=== PATIENT | female | born 1940 | race Caucasian/White ===

== ENCOUNTER 2016-09-12 18:56 | Emergency (ER) | payer OTHER, MEDICARE ==
[~2016-09-12] VITALS: Ht 160 cm; Wt 58.1 kg
--- NOTE | ~2016-09-12 | EKG ---
[address] [place] [address] ELECTROCARDIOGRAM REPORT Name: CHARLIE VUONG [id number] Admission: 09/12/16 Attend Phys: Discharge: 09/12/16 Date of : 36 Report #: [id number] THIS REPORT FOR: //name// [facility] ED Test Date: 2016-09-12 Test Time: 19:01:26 Pat Name: CHARLIE VUONG Department: Room: Gender: F Photoengraver: VAISHNAVI : 1940 Requested By: Vivian Carvajal Order Number: [id number] MD: Trent Olivo Measurements Intervals [facility] Rate: 63 P: 58 [place]: 194 QRS: 15 QRSD: 94 T: 54 QT: 414 QTc: 424 Interpretive Statements Sinus rhythm Nonspecific ST segment abnormality No previous ECG available for comparison Electronically Signed On 09-13-2016 8:34:04 CDT by Trent Olivo [email or web address] <ELECTRONICALLY SIGNED> By: Trent Olivo MD, [facility] 09/13/16 0834 1901 00 Trent Olivo MD, FACC /EPI
[~2016-09-12 18:56] MED LIST: AMBIEN 5 MG TABL5 M1 PO; ATORVASTATIN CA10 MG PO; CO Q-10100 MG PO; DARVOCET-N 1001 EACH PO; FLEXERIL PO; LISINOPRIL; LISINOPRIL20 MG PO; OMEGA-31000 M1 PO; SIMVASTATIN; ZOFRAN ODT4 MG PO
[2016-09-12] MEDS ORDERED: LISINOPRIL-HCT1 EAC1 PO (19:11)
[2016-09-12 19:28] LABS: HEMATOCRIT 41.7 % (37.0-47.0); HEMOGLOBIN 14.5 gm/dL (12.0-15.0); MCH 32.7 pg (26.0-34.0); MCHC 34.6 g/dL (28.0-37.0); MCV 94.3 fL (80.0-100.0); RBC 4.42 mil/uL (4.20-5.00); RDW 12.2 % (10.5-14.5); WBC 5.7 thou/uL (4.0-11.0)
[2016-09-12 19:39] LABS: ANION GAP 5 mmol/L (7-16); BUN 15 mg/dL (7-18); CALCIUM 9.4 mg/dL (8.5-10.1); CHLORIDE 89 mmol/L (98-107); CO2 32 mmol/L (21-32); CREATININE 1.1 mg/dL (0.6-1.3); GLUCOSE 135 mg/dL (70-99); POTASSIUM 3.5 mmol/L (3.5-5.1); SODIUM 126 mmol/L (136-145)
[2016-09-12 19:47] LABS: ALBUMIN 3.8 g/dL (3.4-5.0); ALKALINE PHOSPHATASE 74 U/L (46-116); MAGNESIUM 1.9 mg/dL (1.8-2.4); SGOT 24 U/L (15-37); SGPT 24 U/L (30-65); TOTAL BILIRUBIN 0.6 mg/dL (<0.1-1.0); TOTAL PROTEIN 6.8 g/dL (6.4-8.2); TROPONIN-I < 0.04 ng/mL (<0.04-0.07)
[2016-09-12] MEDS ORDERED: PROTONIX40 M1 PO (20:03)
== END 2016-09-12 20:54 | disposition home or self-care (01) ==
LOC: ER 18:56
PROVIDERS: Physician Assistant
DX: R07.9 Chest pain, unspecified (principal); I10 Essential (primary) hypertension; E78.00 Pure hypercholesterolemia, unspecified

== ENCOUNTER → 2017-01-04 | Outpatient (CLI) | payer OTHER, MEDICARE ==
[~2017-01-04] MED LIST changes: +LISINOPRIL-HCT1 EAC1 PO; +PROTONIX40 M1 PO
== END ==
LOC: BC 12-28 08:15 → RAD 12-28 15:15
DX: Z12.31 Encounter for screening mammogram for malignant neoplasm of breast (principal)

== ENCOUNTER 2017-01-09 13:57 | Emergency (ER) | payer OTHER, MEDICARE ==
[~2017-01-09] VITALS: Ht 160 cm; Wt 57.1 kg
--- NOTE | ~2017-01-09 | EKG ---
[address] [address] ELECTROCARDIOGRAM REPORT Name: CHARLIE VUONG Room #: DEP [facility]#: [id number] Admission: 01/09/17 Attend Phys: Discharge: 01/09/17 Date of : 36 Report #: [id number] THIS REPORT FOR: //name// [facility] ED Test Date: 2017-01-09 Test Time: 15:03:50 Pat Name: CHARLIE VUONG Department: Room: Gender: F Stogy Maker: [id number] : 1940 Requested By: Alison Pate Order Number: [id number] MD: Trent Olivo Measurements Intervals [place] Rate: 58 P: 70 [place]: 233 QRS: 33 QRSD: 86 T: 55 QT: 426 QTc: 419 Interpretive Statements Sinus rhythm Atrial premature complex Prolonged [place] interval Possible anteroseptal infarct, old Compared to ECG 09/12/2016 19:01:26 Atrial premature complex(es) now present Electronically Signed On 01-10-2017 7:45:08 CDT by Trent Olivo [email or web address] <ELECTRONICALLY SIGNED> By: Trent Olivo MD, [facility] 01/10/17 0745 1503 1503 Trent Olivo MD, [facility] /EPI
[2017-01-09 14:50] LABS: ABSOLUTE NEUTROPHILS 3.5 thou/uL (1.4-8.2); BASOPHILS 0.7 % (0.0-2.0); EOSINOPHILS 1.2 % (0.0-3.0); HEMATOCRIT 40.8 % (37.0-47.0); HEMOGLOBIN 14.3 gm/dL (12.0-15.0); MANUAL DIFF NO; MCH 33.2 pg (26.0-34.0); MCV 94.8 fL (80.0-100.0); MONOCYTES 9.7 % (1.0-8.0); PLATELET COUNT 207 thou/uL (150-400); POLYS 65.4 % (36.0-66.0); RDW 12.3 % (10.5-14.5); WBC 5.3 thou/uL (4.0-11.0)
[2017-01-09 14:58] LABS: ANION GAP 5 mmol/L (7-16); BUN 16 mg/dL (7-18); CALCIUM 9.2 mg/dL (8.5-10.1); CHLORIDE 91 mmol/L (98-107); CO2 30 mmol/L (21-32); GLUCOSE 116 mg/dL (74-106); POTASSIUM 3.9 mmol/L (3.5-5.1); SODIUM 126 mmol/L (136-145)
[2017-01-09 15:06] LABS: APTT 28.5 Seconds (24.5-32.8); PROTIME 10.2 Seconds (9.3-11.4); TROPONIN-I < 0.04 ng/mL (<0.04-0.07)
[2017-01-09 15:49] VITALS: BP 163/81
== END 2017-01-09 17:22 | disposition home or self-care (01) ==
LOC: ER 13:57
PROVIDERS: Emergency Medicine
DX: R20.2 Paresthesia of skin (principal); R07.89 Other chest pain; K21.9 Gastro-esophageal reflux disease without esophagitis; E87.1 Hypo-osmolality and hyponatremia; I10 Essential (primary) hypertension; E78.00 Pure hypercholesterolemia, unspecified; F10.99 Alcohol use, unspecified with unspecified alcohol-induced disorder

== ENCOUNTER 2017-03-02 06:24 | Day surgery (SDC) | payer OTHER, MEDICARE ==
[~2017-03-02] VITALS: Ht 160 cm; Wt 57.6 kg
--- NOTE | ~2017-03-02 | O ---
[facility] [place] [address] OPERATIVE REPORT Name: CHARLIE VUONG Room #: 150-5 [facility]..#: [id number] Admission: 03/02/17 Attend Phys: Valentin Fry MD Discharge: Date of : 36 Report #: [id number] THIS REPORT FOR: //name// CC: BELKIS Fry DATE OF SERVICE: 03/02/2017 SURGEON: Valentin Fry MD CERTIFIED PESTICIDE APPLICATOR: None. PREOPERATIVE DIAGNOSIS: Bilateral upper lid dermatochalasia with superior visual field defect. POSTOPERATIVE DIAGNOSIS: Bilateral upper lid dermatochalasia with superior visual field defect. OPERATION PERFORMED: Bilateral upper lid functional blepharoplasty. ANESTHESIA: Local with IV sedation. COMPLICATIONS: None. 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 Visual field testing demonstrates dense superior visual defects. Retesting with the upper lid elevated shows an improvement in visual field loss of over 30% and in excess of 12 degrees. The current procedures are undertaken in order to improve the patient's visual function. Informed consent was obtained to include but not limited to the loss of vision, bleeding, infection, scarring, failure to improve the problem and need for further surgery. DESCRIPTION OF OPERATION: The patient was taken to the operating room, where 2% Xylocaine with epinephrine mixed with equal parts of 0.75% Marcaine with Wydase was administered transcutaneously to each upper lid. The patient was then prepped and draped in the usual sterile fashion and a skin-marking pen was then utilized to outline an upper lid crease that was symmetrical on each side. Graefe forceps were then used to quantitate the redundant upper lid skin and it was similarly outlined. The incisions were then made with Norma scissors and a skin-muscle flap removed from each side with high-temp cautery. Hemostasis was achieved with the monopolar cautery as it was throughout the case. The [address] [address] OPERATIVE REPORT Name: CHARLIE VUONG Room #: [address] [place] [address] M.R.#: [id number] Admission: 03/02/17 Attend Phys: Valentin Fry MD Discharge: Date of : 36 Report #: [id number] orbital septum was then identified and the central and medial fat pads were inspected. The redundant soft tissue was then sculpted with the monopolar cautery. The upper lid crease was then reformed with tightening of the pretarsal orbicularis muscle. The upper lid crease was then further reformed with multiple interrupted 6-0 chromic sutures. The skin was then closed with a running 6-0 plain gut suture. The wound was then cleaned and dressed with ophthalmic antibiotic ointment and a nonstick dressing. The patient was transported to the recovery area, where cold compresses were applied, having tolerated the procedure well with no anesthetic or operative complications being noted. By: 0848 0855 Valentin Fry MD /nt
[~2017-03-02 06:24] MED LIST changes: +MELATONIN 10 M1 EACH PO
[2017-03-02 08:00] VITALS: BP 164/61
== END 2017-03-02 09:30 | disposition home or self-care (01) ==
LOC: OR 06:24 → TBA 06:24 → OR 09:30
DX: H02.834 Dermatochalasis of left upper eyelid (principal); H02.831 Dermatochalasis of right upper eyelid; H53.462 Homonymous bilateral field defects, left side; H53.461 Homonymous bilateral field defects, right side; I10 Essential (primary) hypertension; E78.00 Pure hypercholesterolemia, unspecified; K21.9 Gastro-esophageal reflux disease without esophagitis; Z87.891 Personal history of nicotine dependence; Z85.828 Personal history of other malignant neoplasm of skin; Z98.890 Other specified postprocedural states; Z79.899 Other long term (current) drug therapy
CPT/HCPCS: 50010; 50101; 50386; 50398; 51636; 56531; 62110; 62850; 70005

== ENCOUNTER → 2017-07-21 | Outpatient (CLI) | payer OTHER, MEDICARE ==
[~2017-07-21] MED LIST changes: +CENTRUM SILVER1 EAC4 PO; +NORVASC5 MG PO
[2017-07-21 09:32] LABS: CREATININE 1.1 mg/dL (0.6-1.0)
== END ==
LOC: CAT 07:37
PROVIDERS: Internal Medicine
DX: K57.33 Diverticulitis of large intestine without perforation or abscess with bleeding (principal); N28.1 Cyst of kidney, acquired

== ENCOUNTER → 2018-01-31 | Outpatient (CLI) | payer OTHER, MEDICARE ==
[~2018-01-31] MED LIST changes: -CENTRUM SILVER1 EAC4 PO; -NORVASC5 MG PO
== END ==
LOC: RAD 11:07
DX: Z12.31 Encounter for screening mammogram for malignant neoplasm of breast (principal); I10 Essential (primary) hypertension; E78.00 Pure hypercholesterolemia, unspecified

== ENCOUNTER 2019-01-13 06:29 | Emergency (ER) | payer OTHER, MEDICARE ==
[~2019-01-13] VITALS: Ht 160 cm; Wt 58.1 kg
[~2019-01-13 06:29] MED LIST changes: +CENTRUM SILVER1 EAC4 PO; +NORVASC5 MG PO
[2019-01-13 07:00] LABS: ABSOLUTE NEUTROPHILS 1.9 thou/uL (1.4-8.2); BASOPHILS 0.9 % (0.0-2.0); EOSINOPHILS 2.6 % (0.0-3.0); HEMATOCRIT 44.6 % (37.0-47.0); HEMOGLOBIN 15.3 gm/dL (12.0-15.0); LYMPHOCYTES 38.3 % (24.0-44.0); MCH 33.8 pg (26.0-34.0); MCHC 34.4 g/dL (28.0-37.0); MCV 98.5 fL (80.0-100.0); MONOCYTES 11.8 % (1.0-8.0); PLATELET COUNT 165 thou/uL (150-400); POLYS 46.4 % (36.0-66.0); RBC 4.53 mil/uL (4.20-5.00); RDW 12.6 % (10.5-14.5); WBC 4.2 thou/uL (4.0-11.0)
[2019-01-13 07:10] LABS: CALCIUM 9.3 mg/dL (8.5-10.1); CREATININE 1.1 mg/dL (0.6-1.0); POTASSIUM 4.1 mmol/L (3.5-5.1)
[2019-01-13 07:15] LABS: TOTAL BILIRUBIN 0.5 mg/dL (<0.1-1.0); TOTAL PROTEIN 7.2 g/dL (6.4-8.2)
[2019-01-13 08:05] LABS: URINE BILIRUBIN NEGATIVE (Negative); URINE BLOOD NEGATIVE (Negative); URINE CLARITY CLEAR; URINE COLOR YELLOW; URINE GLUCOSE-RANDOM* NEGATIVE (Negative); URINE KETONES NEGATIVE (Negative); URINE LEUKOCYTES-REFLEX NEGATIVE (Negative); URINE NITRITE-REFLEX NEGATIVE (Negative); URINE PROTEIN (DIPSTICK) NEGATIVE (Negative); URINE UROBILINOGEN 0.2 E.U./dl (0.2-1.0)
[2019-01-13 09:34] VITALS: BP 147/61
--- NOTE | 2019-01-13 19:53 | EKG ---
[address] [address] ELECTROCARDIOGRAM REPORT Name: CHARLIE VUONG [facility] [id number] ������������������ Admission: 01/13/19 ������������������ Attend Phys: Discharge: 01/13/19 ������������������ Date of : 36 Report #: [id number] ����������������������������������������������������������������� [id number] THIS REPORT FOR: //name// [facility] ED Test Date: 2019-01-13 Test Time: 06:50:27 Pat Name: CHARLIE VUONG Department: Room: Gender: F Adult Remedial Education Instructor: ONELIA : 1940 Requested By: Phu Bailey Order Number: [id number] MD: Linwood Hutson Measurements Intervals [place] Rate: 46 P: 65 [place]: 185 QRS: 30 QRSD: 95 T: 53 QT: 489 QTc: 428 Interpretive Statements Sinus bradycardia Probable anteroseptal infarct, old Compared to ECG 03/01/2018 08:45:35 Sinus rhythm no longer present Myocardial infarct finding still present Electronically Signed On 01-13-2019 19:53:38 CDT by Linwood Hutson [email or web address] ��������������������������������������������� <ELECTRONICALLY SIGNED> ���������������������������������������� By: Linwood Hutson MD ��������������������������������������������� 01/13/19 1953 Linwood Hutson MD /WILL
== END 2019-01-13 09:34 | disposition home or self-care (01) ==
LOC: ER 06:29
PROVIDERS: Emergency Medicine
DX: R10.32 Left lower quadrant pain (principal); R10.84 Generalized abdominal pain; I10 Essential (primary) hypertension; E78.00 Pure hypercholesterolemia, unspecified; K58.9 Irritable bowel syndrome, unspecified; Z85.828 Personal history of other malignant neoplasm of skin; Z90.721 Acquired absence of ovaries, unilateral

== ENCOUNTER → 2019-02-27 | Outpatient (CLI) | payer OTHER, MEDICARE | LOC: RAD 10:53 | DX: Z12.31 Encounter for screening mammogram for malignant neoplasm of breast (principal) ==

== ENCOUNTER 2020-01-20 10:30 | Inpatient (IN) | payer OTHER, MEDICARE ==
[~2020-01-20] VITALS: Ht 160 cm; Wt 56.2 kg
[2020-01-20 10:40] VITALS: BP 127/84
[2020-01-20] MEDS ORDERED: CELEXA 20 MG TA20 MG PO (10:51)
[2020-01-20 11:18] LABS: ABSOLUTE NEUTROPHILS 2.7 thou/uL (1.4-8.2); BASOPHILS 0.8 % (0.0-2.0); EOSINOPHILS 1.8 % (0.0-3.0); HEMATOCRIT 46.9 % (37.0-47.0); HEMOGLOBIN 15.7 gm/dL (12.0-15.0); LYMPHOCYTES 29.1 % (24.0-44.0); MCH 33.4 pg (26.0-34.0); MCHC 33.5 g/dL (28.0-37.0); MCV 99.5 fL (80.0-100.0); PLATELET COUNT 181 thou/uL (150-400); POLYS 59.3 % (36.0-66.0); RBC 4.72 mil/uL (4.20-5.00); RDW 12.7 % (10.5-14.5); WBC 4.6 thou/uL (4.0-11.0)
[2020-01-20 11:32] LABS: ANION GAP 9 mmol/L (7-16); BUN 17 mg/dL (7-18); CALCIUM 9.2 mg/dL (8.5-10.1); CHLORIDE 99 mmol/L (98-107); CO2 29 mmol/L (21-32); CREATININE 1.2 mg/dL (0.6-1.0); GLUCOSE 126 mg/dL (74-106); POTASSIUM 4.1 mmol/L (3.5-5.1); SODIUM 137 mmol/L (136-145)
--- NOTE | 2020-01-20 11:37 | EKG ---
[facility] [place] [address] ELECTROCARDIOGRAM REPORT Name: CHARLIE VUONG Room #: PRE M.R.#: [id number] Admission: Attend Phys: Discharge: Date of : 36 Report #: [id number] THIS REPORT FOR: cc: Charles Garcia MD, David A. MD Couchonnal, Luis F. MD ~ THIS REPORT FOR: //name// [facility] ED Test Date: 2020-01-20 Test Time: 11:09:01 Pat Name: CHARLIE VUONG Department: Room: Gender: F Tail Trimmer: [facility] : 1940 Requested By: Mohamud Trevino Order Number: [id number] MD: Linwood Hutson Measurements Intervals [place] Rate: 40 P: NM: QRS: 2 QRSD: 89 T: 59 QT: 475 QTc: 388 Interpretive Statements Sinus rhythm with occasional junctional escape beats Probable anteroseptal infarct, old Compared to ECG 01/13/2019 06:50:27 Electronically Signed On 01-20-2020 11:37:32 CDT by Linwood Hutson [email or web address] <ELECTRONICALLY SIGNED> By: Linwood Hutson MD 01/20/20 1137 1109 1109 Linwood Hutson MD /EPI
[2020-01-20 11:41] LABS: TROPONIN-I <0.06 ng/mL (<0.06)
[2020-01-20 14:54] VITALS: BP 144/51
[2020-01-20 15:18] LABS: URINE BILIRUBIN NEGATIVE (Negative); URINE BLOOD NEGATIVE (Negative); URINE CLARITY CLEAR; URINE COLOR YELLOW; URINE GLUCOSE-RANDOM* NEGATIVE (Negative); URINE KETONES 1+ (Negative); URINE LEUKOCYTES-REFLEX NEGATIVE (Negative); URINE NITRITE-REFLEX NEGATIVE (Negative); URINE PROTEIN (DIPSTICK) TRACE (Negative); URINE SPECIFIC GRAVITY 1.015 (1.005-1.035); URINE UROBILINOGEN 0.2 E.U./dl (0.2-1.0)
[2020-01-20 15:42] VITALS: BP 155/47
[2020-01-20 16:15] LABS: ALBUMIN 3.9 g/dL (3.4-5.0); DIRECT BILIRUBIN 0.1 mg/dL (<0.1-0.2); PHOSPHORUS 3.8 mg/dL (2.5-4.9); TOTAL BILIRUBIN 0.7 mg/dL (0.2-1.0); TOTAL PROTEIN 7.1 g/dL (6.4-8.2)
--- NOTE | 2020-01-20 18:33 | NUR ---
ASSUMED PATIENT CARE UPON ARRIVAL FROM ER. PATIENT AWAKE ALERT ORIENTED, IN NO ACUTE DISTRES, EXPLAINED PLAN OF CARE, PATIENT R/O COVID. IN ENHANCED PRECAUTIONS. VSS.
[2020-01-20 21:27] VITALS: BP 153/65
[2020-01-21] VITALS (8 sets, daily range): BP systolic 109–157; BP diastolic 56–69
[2020-01-21 06:12] LABS: HEMATOCRIT 42.5 % (37.0-47.0); HEMOGLOBIN 14.5 gm/dL (12.0-15.0); MCH 33.9 pg (26.0-34.0); MCV 99.7 fL (80.0-100.0); RBC 4.27 mil/uL (4.20-5.00); RDW 13.2 % (10.5-14.5); WBC 4.4 thou/uL (4.0-11.0)
[2020-01-21 06:24] LABS: INR 1.1; PROTIME 10.9 Seconds (9.3-11.4)
[2020-01-21 07:14] LABS: ALBUMIN 3.3 g/dL (3.4-5.0); ANION GAP 9 mmol/L (7-16); BUN 17 mg/dL (7-18); CALCIUM 8.5 mg/dL (8.5-10.1); CHLORIDE 101 mmol/L (98-107); CHOLESTEROL 170 mg/dL (<200); CO2 26 mmol/L (21-32); CREATININE 1.1 mg/dL (0.6-1.0); GLUCOSE 97 mg/dL (74-106); HDL CHOLESTEROL 71 mg/dL (>40); LDL CHOLESTEROL 90 mg/dL (<100); MAGNESIUM 1.9 mg/dL (1.8-2.4); PHOSPHORUS 3.7 mg/dL (2.5-4.9); POTASSIUM 4.2 mmol/L (3.5-5.1); SGOT 19 U/L (15-37); SGPT 20 U/L (30-65); SODIUM 136 mmol/L (136-145); TC:HDL 2.4 Ratio (Not establshd); TOTAL BILIRUBIN 0.8 mg/dL (0.2-1.0); TOTAL PROTEIN 6.2 g/dL (6.4-8.2); TRIGLYCERIDE 49 mg/dL (<150); VLDL 10 mg/dL (<40)
--- NOTE | 2020-01-21 07:22 | NUR ---
ASSUMED CARE FOR THE PATIENT, PT WAS MADE COMFORTABLE BY RN, WAS GIVEN H20, WARM BLANKET, AND SLEEPING MEDICATION. PT DESAT DOWN TO 30s HR AT NIGHT TIME, THOUGH WHEN RN WOKE UP THE PT TO ASSESS, PT WAS ASYMPTOMATIC AND STATED THAT SHE FELT NORMAL. NO CHANGES THIS SHIFT, PT'S FIRST COVID CAME BACK NEGATIVE
--- NOTE | 2020-01-21 09:55 | NUR ---
informed infection cntrl nurse his am regarding covid ressults being negative, ok from RN and dr. hale to az isolation. patient aware. orders already recieved for transfer off unit to when room avaliable.
--- NOTE | 2020-01-21 14:24 | NUR ---
INITIAL ASSESSMENT: SW reviewed chart and spoke with nursing. Pt was admitted from home due to near syncopal episode. Pt placed in Enhanced Isolation to r/o COVID-19. Pt's test is negative. Pt is afebrile, not requiring O2 and not on IV abx. Cardiology consulted today. No indications for pacemaker at this time. Pt may transfer to CCU later today when a bed is available. SW attempted to reach pt via phone. No answer in pt's room. SW placed call to pt's cell phone. Pt answered and states she is currently having an echocardiogram. SW to follow up with pt at a later time. Per chart, pt is alert/orientated x 4. Pt lives at home. Pt's PCP is Dr. hCarles Garcia. Plan is for pt to discharge home when medically stable. SW is following to assist as needed with discharge planning.
--- NOTE | 2020-01-21 15:24 | NUR ---
ASSUMED PATIENT CARE THIS SHIFT AT APPROXIMAELY 0700, PATIENT AWAKE ALERT ORIENTED, NO DISTRESS NOTED THIS SHIFT. MEDS AND ASSESSMENTS CHARTED. PATIENT COVID RESULTED NEAGATIVE AND CALLED TO [facility]LOOR, ARCHIE D/TYREE Goodman TO MOVE TO . REPORT CALLED TO DYANA BOOTH. LEFT UNIT IN STABLE CONDITION. INFORMATION SUPPORT PROJECT MANAGER RETURNED TO NURSES STATION
--- NOTE | 2020-01-21 16:45 | 2DMMODE ---
[facility] [place] [address] 2 D/M-MODE ECHOCARDIOGRAM Name: CHARLIE VUONG Room #: 219-P ADM IN M.R.#: [id number] Admission: 01/20/20 Attend Phys: Jada Heller MD Discharge: Date of : 36 Report #: [id number] THIS REPORT FOR: cc: Charles Garcia MD, David A. MD Lundgren, Craig H. MD [facility] ~ APPROVED REPORT Study performed: 01/21/2020 14:03:09 EXAM: Comprehensive 2D, Doppler, and color-flow Echocardiogram Patient Location: Bedside Room #: 353 Status: routine BSA: 1.59 HR: 48 bpm BP: 130/66 mmHg Rhythm: Bradycardia Other Information Study Quality: Good Indications Bradycardia Hypertension/HDD 2D Dimensions RVDd: 29.03 mm IVSd: 10.46 (7-11mm) LVOT Diam: 20.86 (18-24mm) LVDd: 44.51 mm PWd: 10.46 (7-11mm) Ascending Ao: 27.01 (22-36mm) LVDs: 30.27 (25-40mm) Aortic Root: 28.07 mm IVC: 18.00 mm Volumes Left Atrial Volume (Systole) Single Plane 4CH: 32.33 mL Single Plane 2CH: 34.49 mL LA ESV Index: 23.00 mL/m2 Aortic Valve AoV Peak Fred.: 1.89 m/s AO Peak Gr.: 14.34 mmHg LVOT Max P.02 mmHg LVOT Max V: 1.12 m/s MAC Vmax: 2.02 cm2 [facility] [address] [place] [address] 2 D/M-MODE ECHOCARDIOGRAM Name: CHARLIE VUONG Room #: 219-P [facility] IN .R.#: [id number] Admission: 01/20/20 Attend Phys: Jada Heller, Discharge: Date of : 36 Report #: [id number] AI Vmax: 4.94 m/s AI [place]: 2.04 m/s2 AI PHT: 703.21 ms Mitral Valve E/A Ratio: 1.1 MV Decel. Time: 148.56 ms MV E Max Fred.: 1.03 m/s MV A Fred.: 0.93 m/s MV PHT: 43.08 ms IVRT: 78.43 ms Pulmonary Valve PV Peak Fred.: 0.86 m/s PV Peak Gr.: 3.00 mmHg Pulmonary Vein P Vein S: 0.57 m/s P Vein A: 0.27 m/s P Vein D: 0.48 m/s P Vein A Dur.: 124.6 msec P Vein S/D Ratio: 1.19 Tricuspid Valve TR Peak Fred.: 2.51 m/s TR Peak Gr.: 25.16 mmHg PA Pressure: 30.00 mmHg Left Ventricle The left ventricle is normal size. There is normal LV segmental wall motion. There is normal left ventricular wall thickness. The left ventricular systolic function is normal. The left ventricular ejection fraction is within the normal range. LVEF is 55-60%. Moderate diastolic dysfunction is present (pseudonormal filling). Right Ventricle The right ventricle is normal size. The right ventricular systolic function is normal. Atria The left atrium size is normal. The right atrium size is normal. Aortic Valve Aortic valve is mildly calcified. Mild to moderate aortic regurgitation. There is no aortic valvular stenosis. Mitral Valve [facility] [address] [place] [address] 2 D/M-MODE ECHOCARDIOGRAM Name: CHARLIE VUONG Room #: 219-P [facility] IN M.R.#: [id number] Admission: 01/20/20 Attend Phys: Jada Heller, Discharge: Date of : 36 Report #: [id number] Mitral annular calcification Mild mitral regurgitation. No evidence of mitral valve stenosis. Tricuspid Valve The tricuspid valve is normal in structure. There is trace tricuspid regurgitation. Estimated PAP 30 mmHg. There is no pulmonary hypertension. Pulmonic Valve The pulmonary valve is normal in structure. There is no pulmonic valvular regurgitation. Great Vessels The aortic root is normal in size. IVC is normal in size and collapses >50% with inspiration. Pericardium There is no pericardial effusion. <Conclusion> The left ventricular systolic function is normal. There is normal LV segmental wall motion. LVEF is 55-60%. Moderate diastolic dysfunction is present (pseudonormal filling). Aortic valve is mildly calcified. No aortic valvular stenosis. Mild to moderate aortic regurgitation. Mitral annular calcification Mild mitral regurgitation. There is trace tricuspid regurgitation. Estimated pulmonary artery pressure of 30 mmHg. There is no pericardial effusion. <ELECTRONICALLY SIGNED> By: Trent Olivo MD, [facility] 01/21/201644 44 44 Trent Olivo MD, FACC /INF
--- NOTE | 2020-01-21 16:58 | NUR ---
PT CARE ASSUMED AT 0700. ASSESSMENTS CHARTED. MEDICATIONS CHARTED. WOUND CARE PERFORMED . COLOSTOMY RN CHECKED ON PT; APPROVED. IV THERAPY UTILIZED CATH ELVA ON ONE OF THE LUMEN; CORRECTED. AWAITING [facility] APPROVAL FOR TRANSFER. PT HAS A TRACH. TUBE FEEDING; PIVOT 1.5 AT 40 ML/HR.
--- NOTE | 2020-01-21 18:13 | NUR ---
PT CARE ASSUMED AT 1645. PT TRANSFER FROM 3W. UP AD [place] PER DR GAN. ASSESSMENT CHARTED. PT WAS NEAR SYNCOPE AT HOME.
[2020-01-22 00:33] VITALS: BP 133/66
--- NOTE | 2020-01-22 04:18 | NUR ---
SLEPT MOST OF SHIFT. TELEMETRY SHOWS SB 34-50'S. ASYMPTOMATIC. UP WITH STEADY GAIT AND NO COMPLAINTS OF DIZZINES. VSS. WORKING ON GOALS AND PLAN OF CARE FOR NOC. PROGRESSING SLOWLY TOWARDS DISCHARGE GOALS. DENIES COMPLAINTS OF PAIN OR SHORTNESS OF AIR. CONTINUE TO ASSES CLOSELY.
[2020-01-22 04:34] VITALS: BP 160/61
[2020-01-22 05:31] LABS: ANION GAP 9 mmol/L (7-16); BUN 17 mg/dL (7-18); CALCIUM 8.7 mg/dL (8.5-10.1); CHLORIDE 99 mmol/L (98-107); CO2 26 mmol/L (21-32); CREATININE 1.2 mg/dL (0.6-1.0); GLUCOSE 98 mg/dL (74-106); SODIUM 134 mmol/L (136-145); TROPONIN-I <0.06 ng/mL (<0.06)
[2020-01-22 08:50] VITALS: BP 136/62
[2020-01-22 13:11] VITALS: BP 136/62
--- NOTE | 2020-01-22 13:54 | NUR ---
ASSUMED CARE AT SHIFT CHANGE, ALERT AND ORIENTED X4, AND PLEASANT. S/B MAGDALENE SOLIS TO DISCHARGE PATIENT AND SHE WILL FOLLOW UP WITH IN THE OFFICE. DISCAHRGE AND MEDICATION INSTRUCTIONS GIVEN TO PATIENT. DISCHARGED HOME.
== END 2020-01-22 14:56 | disposition home or self-care (01) | DRG 309 ==
LOC: ER 10:30 → EROBS 12:32 → 3W 12:32 → 2N 01-21 16:24
PROVIDERS: Emergency Medicine; Nurse Practitioner; ADMIT Internal Medicine; ATTEND Internal Medicine
DX: R00.1 Bradycardia, unspecified (principal); E44.1 Mild protein-calorie malnutrition; I12.9 Hypertensive chronic kidney disease with stage 1 through stage 4 chronic kidney disease, or unspecified chronic kidney disease; E78.00 Pure hypercholesterolemia, unspecified; F32.9 Major depressive disorder, single episode, unspecified; G47.00 Insomnia, unspecified; Z20.828 Contact with and (suspected) exposure to other viral communicable diseases; E78.5 Hyperlipidemia, unspecified; Z60.2 Problems related to living alone; I35.1 Nonrheumatic aortic (valve) insufficiency; Z87.891 Personal history of nicotine dependence; Z79.899 Other long term (current) drug therapy; N18.3 Chronic kidney disease, stage 3 (moderate)
CPT/HCPCS: 10081; 10879

== ENCOUNTER → 2020-02-06 | Outpatient (CLI) | payer OTHER, MEDICARE ==
[~2020-02-06] MED LIST changes: +CELEXA 20 MG TA20 MG PO
== END ==
LOC: SJCVCIMAG 12:20
PROVIDERS: ATTEND Internal Medicine Cardiovascular Disease
DX: I49.3 Ventricular premature depolarization (principal); I10 Essential (primary) hypertension; R94.31 Abnormal electrocardiogram [ECG] [EKG]; K21.9 Gastro-esophageal reflux disease without esophagitis; E78.00 Pure hypercholesterolemia, unspecified; I35.1 Nonrheumatic aortic (valve) insufficiency; Z79.899 Other long term (current) drug therapy

== ENCOUNTER → 2020-03-11 | Outpatient (CLI) | payer OTHER, MEDICARE | LOC: BC 10:55 | PROVIDERS: ATTEND Internal Medicine | DX: Z12.31 Encounter for screening mammogram for malignant neoplasm of breast (principal) ==

== ENCOUNTER → 2021-03-18 | Outpatient (CLI) | payer OTHER, MEDICARE | LOC: BC 10:46 | PROVIDERS: ATTEND Internal Medicine | DX: Z12.31 Encounter for screening mammogram for malignant neoplasm of breast (principal); N64.89 Other specified disorders of breast ==